=== PATIENT | female | born 1970 | race Caucasian/White ===

== ENCOUNTER → 2019-11-07 10:19 | Outpatient (CLI) | payer OTHER, SELFPAY ==
--- NOTE | 2019-11-07 10:25 | DI.RAD.S_ITS ---
PROCEDURE: XR CERVICAL SPINE 4V OR 5V INDICATIONS: cervical radiculopathy TECHNIQUE: 5 views of the cervical spine acquired. 6 images. COMPARISON: [facility], CR, SPINE CERVICAL 2 OR 3VW, 08/29/2014, 14:09. [facility], MR, MR CERVICAL SPINE WITHOUT CONTRAST, 06/24/2019, 14:37. FINDINGS: Bones: ACDF C6-C7 with intervertebral body spacers. No fractures or dislocations to the T1 level. Dens is not well-seen. Fusion at C5-C6. Loss of cervical spine lordosis. Moderate C7-T1 bony neuroforaminal narrowing bilaterally. Moderate degenerative change. Soft tissues: No prevertebral soft tissue swelling. IMPRESSION: Moderate C7-T1 bony neuroforaminal narrowing bilaterally. ACDF at C6-C7 without hardware failure. Moderate degenerative changes in cervical spine with loss of expected lordosis. Dictated by: Thanh Doshi M.D. on 11/07/2019 at 10:56 Approved by: Thanh Doshi M.D. on 11/07/2019 at 11:08
== END ==
PROVIDERS: PCP Family Medicine; Referring Provider Physical Medicine & Rehabilitation; Visit Provider Physical Medicine & Rehabilitation
DX: M47.22 Other spondylosis with radiculopathy, cervical region (principal); M48.02 Spinal stenosis, cervical region; M75.41 Impingement syndrome of right shoulder; Z98.1 Arthrodesis status
CPT/HCPCS: 72050; 99215

== ENCOUNTER → 2020-08-20 13:49 | Outpatient (CLI) | payer OTHER, BC, SELFPAY ==
--- NOTE | 2020-08-20 13:50 | DI.RAD.S_ITS ---
PROCEDURE: XR LUMBAR SPINE MIN 4V INDICATIONS: Low back pain right lower extremity symptoms TECHNIQUE: 5 views of the lumbar spine were acquired, including bilateral oblique views. COMPARISON: None. FINDINGS: Bones: No fracture. Mild L5-S1 spondylosis and disc space narrowing. Multilevel degenerative endplate sclerosis and spurring. Diffuse facet arthropathy. Mild bilateral hip joint degeneration. Possible synovial herniation pits projecting at the femoral head neck junction bilaterally. Soft tissues: Overlying bowel gas pattern is normal. No suspicious soft tissue calcifications. Oblique images: No pars defects. IMPRESSION: L5-S1 mild spondylosis and diffuse facet arthropathy Dictated by: Fady Jackson M.D. on 08/20/2020 at 15:05 Approved by: Fady Jackson M.D. on 08/20/2020 at 15:08
== END ==
PROVIDERS: PCP Family Medicine; Referring Provider Physical Medicine & Rehabilitation; Visit Provider Physical Medicine & Rehabilitation
DX: M47.27 Other spondylosis with radiculopathy, lumbosacral region (principal)
CPT/HCPCS: 72110

== ENCOUNTER → 2020-09-10 13:18 | Outpatient (CLI) | payer OTHER, BC, SELFPAY ==
[2020-09-10 16:40] LABS: COVID19 -Nasal RAPID Negative (Negative)
== END ==
PROVIDERS: PCP Family Medicine; Visit Provider Student in an Organized Health Care Education/Training Program
DX: Z01.812 Encounter for preprocedural laboratory examination (principal); Z20.822 Contact with and (suspected) exposure to COVID-19
CPT/HCPCS: 87635

== ENCOUNTER 2020-09-11 09:18 | Outpatient (CLI) | payer OTHER, BC, SELFPAY ==
[2020-09-11] VITALS (8 sets, daily range): BP systolic 136–156; BP diastolic 64–87; PULSE 66–80; RESP 13–19; TEMP 36.4; O2SAT 96–100
--- NOTE | 2020-09-11 09:19 | DI.RAD.S_ITS ---
PROCEDURE: PAIN C/T INTERLAMINAR INJECT INDICATIONS: SPINAL STENOSIS COMPARISON: None. FINDINGS: Fluoroscopic spot filming was performed to verify placement of spinal needles at the C7-T1 level(s), as labeled on the films. Appropriate location(s) of the needle tip(s) was confirmed by injection of iodinated contrast. IMPRESSION: Successful needle tip localization at C7-T1 for reported translaminar epidural steroid injection. Dictated by: Bogdan Weston M.D. on 09/11/2020 at 11:14 Approved by: Bogdan Weston M.D. on 09/11/2020 at 11:15
[2020-09-11] MEDS: BUPIVACAINE 0.25% (PF) VIAL 2 ML INJ (10:15)
[2020-09-11] MEDS: DEXAMETHASONE 10 MG/ML VIAL 30 MG INJ (10:16)
[2020-09-11] MEDS: IOPAMIDOL 15 ML VIAL 3 ML INJ (10:16)
--- NOTE | 2020-09-11 10:26 | P.PCN_ITS ---
Date/Time/Diagnoses Date of procedure: 09/11/20 Time of procedure: 10:26 Pre-procedure diagnosis: 1. CERVICAL STENOSIS, 2. CERVICAL HNP WITH UPPER EXTREMITY RADICULAR FEATURES Procedure Notes Procedure: FLUORSCOPICALLY GUIDED CONTRAST CONTROLLED INTERLAMINAR EPIDURAL STEROID INJECTION - C7/T1 TL CARRI Indications: Joslyn is referred by Dr. Woodward for treatment of Cervical Stenosis. Physician: David Rueda Total Fluoroscopy time (seconds): 23 Total sedation minutes: 10 Complications: none Procedure in detail & Post-procedure care: DESCRIPTION OF PROCEDURE Following review of allergy and review of potential side effects and com plications, including, but not necessarily limited to, infection, allergic reaction, local tissue breakdown, temporary as well as permanent nerve injury, stroke, paralysis, and possible , the patient indicated that patient understood and agreed to proceed. An informed consent document was signed by the patient, witnessed by a nurse, and placed in the patient's chart. Additionally, other treatment options including modalities, medications, and physical therapy were reviewed with the patient. After review of previous anaesthesic history and IV conscious sedation the patient was deemed safe to proceed with todays procedure with IV conscious sedation as ASA class II designation. Safety time-out was performed to confirm patient ID, procedure to be performed and site of procedure. IV sedation was accomplished with a combination of 2mg of Versed and 50mcg of Fentanyl administered by the RN after DO order, titrated to patient comfort during the course of the procedure while the patient remained responsive to all verbal commands. In the prone position, following sterile prep and drape of the cervical region, the C7/T1 translaminar space was identified fluoroscopically. The skin was anesthetized via a 25-gauge 1.5-inch needle with 1% lidocaine solution. At this point, a 25-gauge, 2.5-inch short bevel spinal needle was atraumatically introduced and advanced under fluoroscopic guidance into epidural space at the C7/T1 translaminar space. Depth was confirmed on lateral view. Radiological data, including multiple fluoroscopic views of the cervical spine, reveal a spinal needle at the C7/T1 translaminar space. Lateral views then show placement of the needle in the epidural space. Subsequent views show contrast material flowing superiorly and inferiorly in the epidural space. DSA fluoroscopy with live contrast injection, once again, confirmed no vascular or intrathecal uptake. At this point, using loss of resistance technique with saline and air, the epidural space was entered. Following negative aspiration, injection of approximately 1.5 cc of Isovue-200 with live fluoroscopy in the AP view confirmed epidural flow in the epidural space without vascular or intrathecal uptake observed. Subsequently, a test dose of 1 cc of 1% lidocaine solution was injected and patient was observed for two minutes without signs or symptoms of complications, including abdominal pain, shortness of breath, bilateral upper or lower extremity weakness, nausea and vomiting, prior to steroid injection. At this point, 3cc or 30mg of dexamethasone was then injected without incident. The patient tolerated the procedure well without signs or symptoms of complications prior to transfer to the recovery area for further monitoring The patient was then transferred to the recovery area where they were observed for an appropriate period of time after the injection. The patient reported a VAS score of 6 prior to the procedure and a post-procedure VAS of 0 POST OP INSTRUCTIONS The patient was provided a Pain Log to continue to record the patient's response to the target-specific procedure prior to the patient's follow-up visit with the referring physician. Additionally, specific post-injection care instructions and a contact number to our office were provided if concerns arise regarding possible complications associated with the procedure are suspected.
== END 2020-09-11 10:50 | disposition home or self-care (01) ==
LOC: RAD 09:18
PROVIDERS: PCP Family Medicine; Referring Provider Family Medicine; Visit Provider Physical Medicine & Rehabilitation
DX: M48.02 Spinal stenosis, cervical region (principal); M50.123 Cervical disc disorder at C6-C7 level with radiculopathy
CPT/HCPCS: 62321; 99152; J1100; J2250; J3010

== ENCOUNTER → 2020-10-25 13:36 | Outpatient (CLI) | payer OTHER, BC, SELFPAY ==
--- NOTE | 2020-10-25 13:37 | DI.MRI.S_ITS ---
PROCEDURE: MR LUMBAR SPINE WO CON INDICATIONS: Right L5-S1 radiculopathy TECHNIQUE: Noncontrast sagittal T1 spin echo and T2 fast echo, sagittal STIR, axial T1 and T2 fast spin echo through the lumbar spine. In cases with scoliosis, additional coronal T2 fast spin echo may be performed. COMPARISON: None. FINDINGS: Image quality: Excellent. Alignment and Curvature: Normal lumbar spine vertebral body height and alignment. Bone Marrow: No suspicious focal marrow signal abnormality or bone marrow edema. Spinal Cord: Normal position and appearance of the conus. Regional Soft Tissues: No prevertebral or paraspinous soft tissue mass. The included unenhanced retroperitoneal visceral structures demonstrate no gross abnormality. T12-L1: No spinal canal or neural foraminal stenosis. L1-L2: No spinal canal or neural foraminal stenosis. L2-L3: No spinal canal or neural foraminal stenosis. L3-L4: No spinal canal or neural foraminal stenosis. L4-L5: Disc bulge flattens the ventral thecal sac. No mass effect upon the traversing L5 nerve roots. No neural foraminal stenosis. Mild facet hypertrophy. L5-S1: Disc desiccation and disc height loss. Annular fissure of the disc in the paracentral and central zones. Bulging disc material displaces the descending S1 nerve roots within both subarticular zones. Foraminal components of the disc bulge contribute to mild neural foraminal narrowing bilaterally, right greater than left. IMPRESSION: Mild displacement of the descending S1 nerve roots (right greater than left) within the subarticular zones by bulging disc material. Correlate for any corresponding S1 radicular symptoms. Dictated by: Sincere Medel M.D. on 10/25/2020 at 15:12 Approved by: Sincere Medel M.D. on 10/25/2020 at 15:14
== END ==
PROVIDERS: PCP Family Medicine; Referring Provider Physical Medicine & Rehabilitation; Visit Provider Physical Medicine & Rehabilitation
DX: M51.26 Other intervertebral disc displacement, lumbar region (principal)
CPT/HCPCS: 72148

== ENCOUNTER → 2020-11-13 08:29 | Outpatient (CLI) | payer OTHER, BC, SELFPAY ==
[2020-11-13 15:10] LABS: COVID19 -Nasal RAPID Negative (Negative)
== END ==
PROVIDERS: PCP Family Medicine; Visit Provider Physical Medicine & Rehabilitation
DX: Z20.822 Contact with and (suspected) exposure to COVID-19 (principal)
CPT/HCPCS: 87635; C9803

== ENCOUNTER 2020-11-15 12:27 | Outpatient (CLI) | payer OTHER, BC, SELFPAY ==
[2020-11-15] VITALS (10 sets, daily range): BP systolic 136–157; BP diastolic 62–78; PULSE 71–85; RESP 14–23; TEMP 37; O2SAT 99–100
--- NOTE | 2020-11-15 12:28 | DI.RAD.S_ITS ---
PROCEDURE: PAIN L/S TRANSFORAMINAL INJECT INDICATIONS: SPONDYLOSIS COMPARISON: [facility], , PAIN C/T INTERLAMINAR INJECT, 09/11/2020, 10:17. FINDINGS: Fluoroscopic spot filming was performed to verify placement of a spinal needle at the L5-S1 level, as labeled on the films. Appropriate location of the needle tip was confirmed by injection of iodinated contrast. IMPRESSION: No significant intraprocedural abnormality. Dictated by: Oswaldo Kim M.D. on 11/15/2020 at 14:09 Approved by: Oswaldo Kmi M.D. on 11/15/2020 at 14:09
[2020-11-15] MEDS: fentaNYL 100 MCG/2 ML INJ 50 MCG IV (13:20)
[2020-11-15] MEDS: BUPIVACAINE 0.25% (PF) VIAL 2 ML INJ (13:27)
[2020-11-15] MEDS: MIDAZOLAM 5 MG/5 ML VIAL IV (13:27)
[2020-11-15] MEDS: IOPAMIDOL 15 ML VIAL 3 ML INJ (13:27)
[2020-11-15] MEDS: DEXAMETHASONE 10 MG/ML VIAL 20 MG INJ (13:28)
[2020-11-15] MEDS: BETAMETHASONE 30 MG/5 ML MDV 6 MG INJ (13:29)
--- NOTE | 2020-11-15 13:38 | P.PCN_ITS ---
Date/Time/Diagnoses Date of procedure: 11/15/20 Time of procedure: 13:39 Pre-procedure diagnosis: FORAMINAL STENOSIS WITH LE SYMPTOMS Post-procedure diagnosis: same Procedure Notes Procedure: 1. FLUOROSCOPICALLY GUIDED CONTRAST CONTROLLED TRANSFORAMINAL EPIDURAL STEROID INJECTION - RIGHT L5/S1 TFESI Indications: Joslyn is referred by Dr. Woodward for treatment of Foraminal Stenosis with Right LE Symptoms Physician: David Rueda Total Fluoroscopy time (seconds): 10 Total sedation minutes: 14 Complications: none Procedure in detail & Post-procedure care: FINDINGS Foraminal Nerve Root Compression secondary to disc disease and facet hypertrophy DESCRIPTION OF PROCEDURE Following review of allergy and review of potential side effects and complications, including, but not necessarily limited to, infection, allergic reaction, local tissue breakdown, stroke, temporary or permanent nerve injury, paralysis, and possible , the patient indicated that the patient understood and agreed to proceed. An informed consent document was signed by the patient, witnessed by a nurse, and placed in the patient's chart. Additionally, other treatment options including medications, modalities, and physical therapy were reviewed with the patient. After review of previous anaesthesic history and IV conscious sedation the patient was deemed safe to proceed with today?s procedure with IV conscious sedation as ASA class II designation. Safety time-out was performed to confirm patient ID, procedure to be performed and site of procedure. IV sedation was accomplished with a combination of 3mg of Versed and 50mcg of Fentanyl was administered by the RN after DO order, titrated to patient comfort during the course of the procedure while the patient remained responsive to all verbal commands In the prone position following sterile prep and drape of the lumbar region, the right L5/S1 posterior neuroforamen was identified fluoroscopically. The skin was anesthetized via a 25-gauge 1.5-inch needle with 1% lidocaine solution. At this point, a 25-gauge 3.5-inch spinal needle was atraumatically introduced and advanced under fluoroscopic guidance through the posterior right L5/S1 neuroforamen to approximately the anterior aspect of the canal. Depth was confirmed on lateral view. Following negative aspiration, injection of approximately 1.5cc of Isovue 200 under live fluoroscopy in the AP view confirmed excellent flow along the nerve root, into the epidural space without vascular or intrathecal uptake observed Radiological data, including multiple fluoroscopic views of the lumbosacral spine, reveal a spinal needle at the right L5/S1 posterior neuroforamen. Subsequent views show flow of contrast material flowing superiorly and inferiorly along the nerve root confirming epidural flow. Subsequently, a test dose of 1.5 cc of 1% lidocaine solution was administered and patient was observed for two minutes for signs or symptoms of complications, including abdominal pain, shortness of breath, bilateral upper or lower extremity weakness, nausea and vomiting, prior to steroid injection. At this point, a total of 3cc or 20mg of dexamethasone and 6mg of betamethasone was injected without incident. The procedure tolerated the procedure well without signs or symptoms of complications prior to transfer to the recovery area continued monitoring without incident. The patient was then transferred to the recovery area where they were observed for an appropriate time after the injection. The patient reported a VAS score of 7 prior to the procedure and a post- procedure VAS of 0. POST OP INSTRUCTIONS The patient was provided a Pain Log to continue to record their response to the target-specific procedure prior to follow-up visit with their referring physician. Additionally, specific post-injection care instructions and a contact number to our office were provided if concerns arise regarding possible complications associated with the procedure are suspected.
== END 2020-11-15 14:05 | disposition home or self-care (01) ==
LOC: RAD 12:28
PROVIDERS: PCP Family Medicine; Referring Provider Physical Medicine & Rehabilitation; Visit Provider Physical Medicine & Rehabilitation
DX: M48.07 Spinal stenosis, lumbosacral region (principal); M51.17 Intervertebral disc disorders with radiculopathy, lumbosacral region
CPT/HCPCS: 64483; 99152; J0702; J1040; J1100; J2250; J3010